=== PATIENT | female | born 1995 | race Caucasian/White ===

== ENCOUNTER 2018-12-13 16:29 | Emergency (ER) | payer MEDICAID ==
[2018-12-13 16:35] VITALS: O2SAT 99
--- NOTE | 2018-12-13 17:01 | C.PDOC ---
History Of Present Illness 23 y/o female with chief complaint of vaginal bleeding. Patient, who is 10 weeks , complains she developed lower abdominal cramps and vaginal spotting today. Patient states the pain is intermittent. She denies fever, dysuria, hematuria, back pain, or other complaints. Time Seen by Provider: 12/13/18 16:37 Chief Complaint (Nursing): Female Genitourinary History Per: Patient History/Exam Limitations: no limitations Onset/Duration Of Symptoms: Hrs Current Symptoms Are (Timing): Still Present Past Medical History Reviewed: Historical Data, Nursing Documentation, Vital Signs Vital Signs: Last Vital Signs Temp 99.3 F 12/13/18 16:33 Pulse 89 12/13/18 16:33 Resp 20 12/13/18 16:33 BP 115/76 12/13/18 16:33 Pulse Ox 99 12/13/18 16:33 Family History: States: No Known Family Hx - Social History Hx Tobacco Use: No Hx Alcohol Use: No Hx Substance Use: No - Immunization History Hx Tetanus Toxoid Vaccination: No Hx Influenza Vaccination: No Hx Pneumococcal Vaccination: No Review Of Systems Except As Marked, All Systems Reviewed And Found Negative. Constitutional: Negative for: Fever Gastrointestinal: Positive for: Abdominal Pain Genitourinary: Positive for: Vaginal Bleeding. Negative for: Dysuria, Hematuria Musculoskeletal: Negative for: Back Pain Physical Exam - Physical Exam Appears: Non-toxic, No Acute Distress Skin: Warm, Dry Head: Atraumatic Eye(s): bilateral: Normal Inspection Nose: Normal Oral Mucosa: Moist Neck: Supple Chest: Symmetrical Cardiovascular: Rhythm Regular, No Murmur Respiratory: Normal Breath Sounds, No Rales, No Rhonchi, No Wheezing Gastrointestinal/Abdominal: Soft, No Tenderness Back: Normal Inspection, No CVA Tenderness Extremity: No Pedal Edema Extremity: Bilateral: Atraumatic, Normal ROM Neurological/Psych: Oriented x3, Normal Speech ED Course And Treatment - Laboratory Results Result Diagrams: 12/13/18 17:09 12/13/18 17:09 O2 Sat by Pulse Oximetry: 99 (RA) Pulse Ox Interpretation: Normal Medical Decision Making Medical Decision Making: Plan: --Labs --UA --Pelvis US Disposition - Disposition Disposition Time: 19:00 Condition: STABLE Forms: RetAPPs (Armenian) - Clinical Impression Clinical Impression: Threatened miscarriage, Hyperemesis gravidarum - Scribe Statement The provider has reviewed the documentation as recorded by the Scribe Ivett Simpson Provider Attestation: All medical record entries made by the Scribe were at my direction and personally dictated by me. I have reviewed the chart and agree that the record accurately reflects my personal performance of the history, physical exam, medical decision making, and the department course for this patient. I have also personally directed, reviewed, and agree with the discharge instructions and disposition. Physician Patient Turnover Patient Signed Over To: Remi Ruiz Handoff Comments: pelvic u/s pending
[2018-12-13 17:17] LABS: BASO % 0.2 % (0.0-2.0); EOS # 0.1 K/uL (0.0-0.7); EOS % 0.9 % (0.0-4.0); HEMOGLOBIN 12.3 g/dL (11.0-16.0); LYMPH # 2.3 K/uL (1.0-4.3); LYMPH % 21.9 % (20.0-40.0); MEAN CELL VOLUME 91.7 fL (81.0-99.0); MEAN CORPUSCULAR HEMOGLOBIN 30.9 pg (27.0-31.0); MEAN CORPUSCULAR HGB CONC 33.8 g/dL (33.0-37.0); MEAN PLATELET VOLUME 9.5 fL (7.2-11.7); MONO # 0.6 K/uL (0.0-0.8); MONO % 5.6 % (0.0-10.0); NEUT # 7.5 K/uL (1.8-7.0); NEUT % 71.4 % (50.0-75.0); RBC 3.98 Mil/uL (3.80-5.20); WHITE BLOOD COUNT 10.5 K/uL (4.8-10.8)
[2018-12-13 17:21] LABS: SQUAMOUS EPITHIAL 7 /hpf (0-5); URINE BACTERIA RARE (<OCC)
[2018-12-13 17:27] LABS: PH,URINE 5.5 (5.0-8.0); URINE BILIRUBIN NEGATIVE (NEGATIVE); URINE BLOOD NEGATIVE (NEGATIVE); URINE CLARITY CLEAR (Clear); URINE COLOR YELLOW (YELLOW); URINE GLUCOSE (UA) NEG (Normal); URINE PROTEIN NEGATIVE (NEGATIVE); URINE UROBILINOGEN 0.2 mg/dL (0.2-1.0)
[2018-12-13 17:28] LABS: URINE LEUKOCYTE ESTERASE NEG Leu/uL (Negative)
[2018-12-13 17:32] LABS: ALB/GLOB RATIO 1.7 (1.0-2.1); ALBUMIN 4.4 g/dL (3.5-5.0); AST/SGOT 20 U/L (14-36); BLOOD UREA NITROGEN 8 mg/dL (7-17); CALCIUM 9.8 mg/dl (8.6-10.4); GFR NON-AFRICAN AMERICAN > 60
[2018-12-13 17:46] LABS: ALT/SGPT < 6 U/L (9-52)
[2018-12-13 19:47] VITALS: BP 110/70; PULSE 90; RESP 18; TEMP 98
--- NOTE | 2018-12-14 09:38 | US ---
Date of service: 12/13/2018 PROCEDURE: OB Pelvic Ultrasound HISTORY: r/o miscarrge LMP: 10/13/2018 COMPARISON: None available. FINDINGS: UTERUS: Gestational sac: Single live intrauterine gestation. Gestational sac diameter measures 4.57 cm corresponding to 10 weeks and 1 day of gestational age. Yolk sac is visualized. CRL measures 1.88 cm corresponding to 8 weeks and 3 days of gestational age. Heart rate: 158 bpm. age (Ultrasound estimated): 9 weeks and 2 days Aury-gestational hemorrhage: None. Date of delivery (Ultrasound estimated) : 07/16/2019 Uterus measures cm. Normal in size and appearance. CERVIX: Measures cm. Long and closed. No cervical abnormality seen. RIGHT OVARY: Measures 3.78 x 2.8 x 3.1 cm. No mass lesion. Normal flow. LEFT OVARY: Measures 3.69 x 2.35 x 2.94 cm. No solid mass. Normal flow. FREE FLUID: None. OTHER FINDINGS: None. IMPRESSION: Single live intrauterine gestation with mean in gestational age of 9 weeks and 2 days. The estimated date of delivery by ultrasound is 07/16/2019. The ultrasound dates correspond with the clinical dates. A preliminary report was provided by [facility].
== END 2018-12-13 19:48 | disposition home or self-care (01) ==
LOC: C.ER 16:29
DX: O20.0 Threatened abortion (principal); O21.0 Mild hyperemesis gravidarum; Z3A.09 9 weeks gestation of pregnancy